=== PATIENT | female | born 1965 | race Caucasian/White ===

== ENCOUNTER 2016-09-09 15:48 | Emergency (ER) | payer OTHER ==
[2016-09-09 16:49] VITALS: RESP 18; TEMP 98.2
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
[2016-09-09 19:02] VITALS: BP 124/75; PULSE 78
[2016-09-09 20:58] VITALS: O2SAT 100
== END 2016-09-09 19:03 | disposition home or self-care (01) ==
LOC: C.ER 15:48
DX: S63.602A Unspecified sprain of left thumb, initial encounter (principal); X58.XXXA Exposure to other specified factors, initial encounter; Y92.89 Other specified places as the place of occurrence of the external cause; Y99.0 Civilian activity done for income or pay

== ENCOUNTER 2017-10-22 14:07 | Emergency (ER) | payer SELFPAY ==
[2017-10-22 14:29] VITALS: BP 140/90; PULSE 76; RESP 22; TEMP 98.1; O2SAT 100
--- NOTE | 2017-10-22 14:47 | C.PDOC ---
History Of Present Illness 52 y/o female presents to the ER complaining of acute on chronic right knee pain. Patient states that the pain is worse with walking up/ down the stairs. 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 Time Seen by Provider: 10/22/17 14:39 Chief Complaint (Nursing): Lower Extremity Problem/Injury History Per: Patient History/Exam Limitations: no limitations Onset/Duration Of Symptoms: Days Current Symptoms Are (Timing): Still Present Severity: Moderate Past Medical History Reviewed: Historical Data, Nursing Documentation, Vital Signs Vital Signs: Last Vital Signs Temp 98.1 F 10/22/17 14:26 Pulse 76 10/22/17 14:26 Resp 22 10/22/17 14:26 BP 140/90 10/22/17 14:26 Pulse Ox 100 10/22/17 15:56 - Medical History PMH: No Chronic Diseases Surgical History: (x3) Family History: States: No Known Family Hx - Social History Hx Tobacco Use: Yes Hx Alcohol Use: No Hx Substance Use: No - Immunization History Hx Tetanus Toxoid Vaccination: Yes (2014) Hx Influenza Vaccination: No Hx Pneumococcal Vaccination: No Review Of Systems Except As Marked, All Systems Reviewed And Found Negative. Musculoskeletal: Positive for: Other (right knee pain) Physical Exam - Physical Exam Appears: Non-toxic, No Acute Distress, Other (morbidly obese) Skin: Normal Color, Warm, Dry Head: Atraumatic, Normacephalic Eye(s): bilateral: Normal Inspection Nose: Normal Oral Mucosa: Moist Neck: Supple Chest: Symmetrical Extremity: Normal ROM (right knee, right ankle), No Tenderness (right knee, right ankle), Other ((-) effusion to right knee, right ankle) Neurological/Psych: Oriented x3, Normal Speech ED Course And Treatment O2 Sat by Pulse Oximetry: 100 (RA) Pulse Ox Interpretation: Normal Progress Note: Motrin PO Medical Decision Making Medical Decision Making: acute on chronic R knee/ankle pain ROS + weight gains normal knee exam, no distal edema LOW susp of acute knee injury- pt defers radiology with informed consent and prefers opt f/u. weight loss encouraged. smoking cessation encouraged. Disposition Doctor Will See Patient In The: Office Counseled Patient/Family Regarding: Studies Performed, Diagnosis - Disposition Referrals: Kervin Fleming MD [Staff Provider] - Disposition: HOME/ ROUTINE Disposition Time: 14:47 Condition: GOOD Additional Instructions: continue ice packs 1/2 hour per hour, never anything hot motrin/advil 400-600 mg every 6 hours as needed weight loss stop smoking Follow-up with Dr. Fleming- consider outpatient referral for orthopedics AFTER weight loss Instructions: Chronic Knee Pain Forms: [facility] ([place]) - Clinical Impression Clinical Impression: Joint pain - Scribe Statement The provider has reviewed the documentation as recorded by the Merariibe Wander Cosby Provider Attestation: All medical record entries made by the Scribe were at my direction and personally dictated by me. I have reviewed the chart and agree that the record accurately reflects my personal performance of the history, physical exam, medical decision making, and the department course for this patient. I have also personally directed, reviewed, and agree with the discharge instructions and disposition.
== END 2017-10-22 14:58 | disposition home or self-care (01) ==
LOC: C.ER 14:07
DX: M25.561 Pain in right knee (principal)